=== PATIENT | female | born 1995 | race Hispanic/Latino ===

== ENCOUNTER 2018-10-29 03:26 | Emergency (ER) | payer OTHER, SELFPAY ==
[2018-10-29] MEDS ORDERED: Ondansetron PF 4 MG/2 ML Vial ONE (05:21)
[2018-10-29 05:54] LABS: Mean Corpuscular HGB CONC 35.7 g/dL (32.0-36.0); Mean Corpuscular Hemoglobin 32.7 pg (27.0-31.0); Mean Corpuscular Volume 91.7 fL (78.0-98.0); Mean Platelet Volume 10.8 fL (7.4-10.4); Platelet Count 165 thou/uL (130-400); RBC Distribution Width 11.7 % (11.5-14.5); Red Blood Cell (RBC) Count 4.29 mill/uL (4.20-5.40); White Blood Cell (WBC) Count 6.9 thou/uL (4.8-10.8)
[2018-10-29 05:55] LABS: Bilirubin Small (Negative); Blood, Urine Negative (Negative); Clarity CLEAR (Clear); Glucose, Urine (Dipstick) Negative (Negative); Leukocyte Negative (Negative); Nitrite Negative (Negative); Protein, Urine (Dipstick) Trace mg/dL (Neg-Trace); Urobilinogen 0.2 mg/dL (0.2-1.0)
[2018-10-29] MEDS ORDERED: Dicyclomine 20 MG TAB ONE (05:55)
[2018-10-29 06:01] LABS: ALT (SGPT) 13 U/L (8-55); AST (SGOT) 24 U/L (5-34); Albumin 4.2 g/dL (3.5-5.0); Alkaline Phosphatase 80 U/L (40-150); Anion Gap 16 mmol/L (10-20); BUN (Urea Nitrogen) 10 mg/dL (7.0-18.7); Bilirubin, Total 0.5 mg/dL (0.2-1.2); Calc. Creatinine Clearance 0 mL/min (70-130); Calcium 9.7 mg/dL (7.8-10.44); Carbon Dioxide 19 mmol/L (22-29); Chloride 103 mmol/L (98-107); Estimated GFR-MDRD Greater than 90; Globulin 3.4 g/dL (2.4-3.5); Glucose 81 mg/dL (70-105); Potassium 3.4 mmol/L (3.5-5.1); Protein, Total 7.6 g/dL (6.0-8.3); Sodium 135 mmol/L (136-145)
[2018-10-29 06:14] LABS: Band 12 % (5-11); Lymphocytes 4 % (21-51); MDiff Complete? YES; Monocytes 3 % (0-10); Neutrophil 81 % (42-75)
--- NOTE | 2018-10-29 07:15 | ULT ---
ULTRASOUND PELVIS WITH DOPPLER AND COLOR FLOW AND SPECTRAL ANALYSIS: Date: 10/29/18 INDICATION: patient with abdominal and pelvic cramping/pain. FINDINGS: There is a live intrauterine gestation present with cardiac activity documented at 153 beats/mi nute. On the basis of sonographic imaging, fetus demonstrates a 16 week and 4 day gestation, placing estimated date of delivery by ultrasound at 04/11/19. Estimated weight is 158 gm, which places the fetus at the 55th percentile by Hadlock criteria. Cervical length is approximately 3.2 cm, as dem onstrated, and the inferior placental margin does approximate the internal os, compatible with low-ly ing placenta. Amniotic fluid volume is subjectively normal. IMPRESSION: 1. Live, intrauterine gestation as above. 2. Low-lying placenta. Recommend continued imaging follow-up. CODE T. POS: NWK
== END 2018-10-29 06:43 | disposition home or self-care (01) ==
LOC: ERS 03:26
DX: O99.612 Diseases of the digestive system complicating pregnancy, second trimester (principal); K52.9 Noninfective gastroenteritis and colitis, unspecified; Z3A.16 16 weeks gestation of pregnancy
CPT/HCPCS: 76856; 80053; 81003; 84702; 85025; 87086; 93976; 96361; 96374; J2405

== ENCOUNTER 2019-03-26 17:00 | Inpatient (IN) | payer OTHER ==
--- NOTE | 2019-03-26 13:33 | PDOC.LDHP ---
Labor and Delivery H&P Chief complaint: scheduled induction HPI: 23 yo @ 37w3d by LMP c/w 13w6d sono who presents for IOL due to intahepatic cholestasis of based on sx and elevated LFTs. Pt has h/o LTCS x1 for FGR (never labored) and desires TOLAC. Antepartum course otherwise benign. Current gestational age (weeks): 37 Due date: 04/13/19 Dating criteria: last menstrual period Grav: 2 Para: 1 OB History Details: LTCS @ 36 weeks for FGR Current complications: other (ICP) Abnormal US findings: No Past Medical History: Denies Current medications: pre- vitamins, other (ASA) Previous surgical history: low tranverse CS Allergies/Adverse Reactions: Allergies Allergy/AdvReac Type Severity Reaction Status Date / Time No Known Allergies Allergy Unverified 03/26/19 19:36 Social history: none - Physical Exam Vital signs reviewed and normal: yes FHT: category 1 (120s, mod nerissa, +accels, no decels) [place] contractions every: no ctx - Vaginal Exam cm dilated: 1 (Balloon placed by Dr. Russo ) Effacement: 0% Station: -3 - OB Labs Blood type: O RH: positive Antibody Screen: negative HIV: negative RPR: negative HEPSAg: negative 1 hour GCT: negative GBS: negative Urine drug screen: negative Rubella: immune - Assessment 37w3d IUP H/O LTCS ICP IOL for TOLAC - Plan Plan: admit to L&D, cervical ripening (with cook balloon), labor augmentation if indicated, informed consent obtained, anesthesia consult for pain management -: Pt has been counseled on option of RCS vc TOLAC and desires TOLAC. Place balloon and plan for pitocin after balloon removed for IOL. Coags and ICP labs ordered.
[2019-03-26] MEDS ORDERED: HYDROcodone/Acetaminophen 5/325 mg Tablet PO PRN (19:02)
[2019-03-26] MEDS ORDERED: Misoprostol 200 MCG TAB PR PRN (19:02)
[2019-03-26] MEDS ORDERED: Lidocaine 1% (PF) 30 ML VIAL SC PRN (19:02)
[2019-03-26] MEDS ORDERED: Ibuprofen 800 MG TAB PO PRN (19:02)
[2019-03-26] MEDS ORDERED: Acetaminophen 500 MG TAB PO PRN (19:02)
[2019-03-26] MEDS ORDERED: NS / Oxytocin 40 units/1000ml 1,000 ML IV PRN (19:02)
[2019-03-26] MEDS ORDERED: Methylergonovine 0.2 MG/ML VIAL IM PRN (19:02)
[2019-03-26] MEDS ORDERED: Promethazine HCl 25 MG/ML VIAL IM PRN (19:02)
[2019-03-26] MEDS ORDERED: Diphenoxylate HCl/Atropine Tablet PO PRN (19:02)
[2019-03-26] MEDS ORDERED: Carboprost 250 MCG/ML AMP IM PRN (19:02)
[2019-03-26] MEDS ORDERED: Ondansetron PF 4 MG/2 ML Vial IVP PRN (19:02)
[2019-03-26] MEDS ORDERED: hydrALAZINE 20 MG/ML VIAL SLOW IVP PRN (19:02)
[2019-03-26] MEDS: Lactated Ringer's 1,000 ML IV SCH (19:30)
[2019-03-26 19:34] VITALS: BMI 33.9
[2019-03-26 19:58] LABS: Hemoglobin 12.7 g/dL (12.0-16.0); Mean Corpuscular HGB CONC 35.1 g/dL (32.0-36.0); Mean Corpuscular Hemoglobin 32.7 pg (27.0-31.0); Mean Corpuscular Volume 93.2 fL (78.0-98.0); Platelet Count 196 thou/uL (130-400); RBC Distribution Width 11.7 % (11.5-14.5); White Blood Cell (WBC) Count 8.4 thou/uL (4.8-10.8)
[2019-03-26 20:32] LABS: Syphilis Antibody Nonreactive (Nonreactive); Syphilis Antibody Index 0.05 S/CO (<1.00 Non-Reactive)
[2019-03-26 21:12] LABS: ALT (SGPT) 112 U/L (8-55); AST (SGOT) 124 U/L (5-34); Albumin 3.4 g/dL (3.5-5.0); Alkaline Phosphatase 340 U/L (40-110); Anion Gap 18 mmol/L (10-20); BUN (Urea Nitrogen) 11 mg/dL (7.0-18.7); Bilirubin, Total 0.5 mg/dL (0.2-1.2); Calc. Creatinine Clearance 172 mL/min (70-130); Calcium 9.2 mg/dL (7.8-10.44); Carbon Dioxide 18 mmol/L (22-29); Chloride 104 mmol/L (98-107); Estimated GFR-MDRD Greater than 90; Globulin 2.9 g/dL (2.4-3.5); Glucose 112 mg/dL (70-105); Protein, Total 6.3 g/dL (6.0-8.3); Sodium 136 mmol/L (136-145)
[2019-03-26 21:15] LABS: PTT 25.4 SEC (22.9-36.1); Prothrombin Time 12.9 SEC (12.0-14.7)
[2019-03-26 21:32] LABS: HBSAg Index 0.32 S/CO (0-0.99); HIV (1/2) Antibody/Antigen Non-Reactive (NonReactive); HIV 1/2 INDEX 0.09 S/CO (<1.00); Hep B Surf Ag Non-Reactive S/CO (NonReactive)
[2019-03-27] MEDS ORDERED: Zolpidem Tartrate 5 MG TAB PO PRN (00:04)
[2019-03-27] MEDS: Butorphanol Tartrate 1 MG/ML VIAL SLOW IVP PRN ×2 (01:29→02:59)
[2019-03-27] MEDS: Lactated Ringer's 1,000 ML IV SCH ×3 (02:59→14:03)
[2019-03-27] MEDS: NS w/ Oxytocin 10 units 500 ML IV SCH ×2 (06:35→21:09)
[2019-03-27] MEDS: Calcium Carbonate 500 MG ChewTAB PO PRN ×2 (07:42→23:28)
--- NOTE | 2019-03-27 08:13 | PDOC.LDPN ---
Labor & Delivery Progress Note - Subjective Subjective: other (mild ctx ) - Objective Vital signs reviewed and normal: yes General: NAD Uterine fundus: non tender Dilation: 4 Effacement: 50% Station: -2 FHT: category 1 (120s, mod nerissa, +accels, no decels ) [place] contractions every: q2-4min AROM: clear fluid - Assessment (1) 37 weeks gestation of Code(s): Z3A.37 - 37 WEEKS GESTATION OF Current Visit: Yes Status : Acute (2) Cholestasis during Code(s): O26.619 - LIVER AND BILIARY TRACT DISORD IN , UNSP TRIMESTER; K83.1 - OBSTRUCTION OF BILE DUCT Current Visit: Yes Status: Acute (3) Encounter for trial of labor Code(s): AIA6034 - Current Visit: Yes Status: Acute -: s/p AROM on pitocin Place IUPC next exam Continue mgmt TOLAC LFTs increased, PRN antihistamine
[2019-03-27] MEDS ORDERED: Fentanyl 4 mcg/Bup 0.1% Cadd 100 ML ONE ×2 (12:53→21:01)
[2019-03-27] MEDS ORDERED: Bupivacaine HCl 0.25%/Epi 0.0005/PF 10 ML VIAL FS ONE (19:00)
[2019-03-27] MEDS ORDERED: Bupivacaine/Epinephrine 0.5% 10 ML VIAL ONE ×2 (19:00)
--- NOTE | 2019-03-27 23:02 | PDOC.LDPN ---
Labor & Delivery Progress Note - Subjective Subjective: comfortable - Objective Vital signs reviewed and normal: yes General: NAD Uterine fundus: non tender Dilation: 7 Effacement: 90% Station: -1 FHT: category 1 (130s, mod nerissa, +accels, early decels ) [place] contractions every: q2 min - adequate MVUs - Assessment (1) 37 weeks gestation of Code(s): Z3A.37 - 37 WEEKS GESTATION OF Current Visit: Yes Status : Acute (2) Cholestasis during Code(s): O26.619 - LIVER AND BILIARY TRACT DISORD IN , UNSP TRIMESTER; K83.1 - OBSTRUCTION OF BILE DUCT Current Visit: Yes Status: Acute (3) Encounter for trial of labor Code(s): [id number] - Current Visit: Yes Status: Acute -: SVE 7 cm, unchanged for several hours. Recommended RLTCS for arrest of dilation, Pt amenable.
[2019-03-27] MEDS ORDERED: Bicitra 30 ML UDCUP PO SCH (23:15)
[2019-03-27] MEDS ORDERED: Azithromycin 500 MG in Sodium Chloride 0.9% 250 ML 250 ML IVPB SCH (23:15)
[2019-03-27] MEDS ORDERED: CEFAZOLIN 2 GM in Premix Bag 1 BAG IVPB SCH (23:15)
[2019-03-27] MEDS ORDERED: MORPHINE 5 MG/10 ML PF VIAL ONE (23:18)
[2019-03-27] MEDS ORDERED: Dexamethasone 4 mg/ml Vial ONE (23:19)
[2019-03-27] MEDS ORDERED: Oxytocin 10 UNITS/ML VIAL ONE (23:19)
[2019-03-27] MEDS ORDERED: Ondansetron PF 4 MG/2 ML Vial ONE (23:19)
[2019-03-27] MEDS ORDERED: ePHEDrine/0.9% NaCl/PF SYRINGE 50 mg/10 ml ONE (23:19)
[2019-03-27] MEDS ORDERED: PHENYLEPHRINE-NS 100 MCG/ML 10 ML SYRINGE ONE (23:19)
[2019-03-27] MEDS ORDERED: Ketorolac Tromethamine 30 MG/ML VIAL ONE (23:19)
[2019-03-27] MEDS ORDERED: Fentanyl 100 MCG/2 ML VIAL ONE (23:20)
[2019-03-27] MEDS ORDERED: Carboprost 250 MCG/ML AMP ONE (23:55)
[2019-03-27] MEDS ORDERED: Methylergonovine 0.2 MG/ML VIAL ONE (23:56)
[2019-03-27] MEDS ORDERED: Misoprostol 200 MCG TAB ONE (23:56)
--- NOTE | 2019-03-28 00:17 | PDOC.EVN ---
Event Note - Event Note Event Note: CS Assist Note Asked to assist with this repeat CS. I was scrubbed and assisted and participated until fascial closure. Vigorous . No complications noted. Please see full dictation by Dr Uribe.
[2019-03-28] MEDS ORDERED: diphenhydrAMINE 50 MG/ML VIAL ONE (00:20)
--- NOTE | 2019-03-28 00:31 | PDOC.OPDEL ---
OB Operative/Delivery Note Delivery Dr/Surgeon: Lynn Nelson DO Assist: Tnoy Burnham MD Pre-Delivery Diagnosis: medically indicated induction Procedure/Post Delivery Dx: repeat low transverse CS Weeks gestation: 37 Anesthesia: epidural - Findings A Sex: male - 1 min: 8 - 5 min: 9 - Additional Findings/Plan findings: low transverse hysterotomy without extension, normal uterus, normal tubes, normal ovaries, other (Infant in ROT position Clear amniotic fluid Normal appearing placenta) Estimated blood loss: EBL 500 cc; QBL 465 cc Post delivery plan: routine recovery (Dictation # [id number])
[2019-03-28] MEDS ORDERED: Lanolin Ointment 7 GM TUBE TOP PRN (02:34)
[2019-03-28] MEDS ORDERED: Ondansetron PF 4 MG/2 ML Vial IVP PRN ×2 (02:34→03:31)
[2019-03-28] MEDS ORDERED: hydrALAZINE 20 MG/ML VIAL SLOW IVP PRN (02:34)
[2019-03-28] MEDS ORDERED: Acetaminophen 325 MG TAB PO PRN (02:34)
[2019-03-28] MEDS ORDERED: Bisacodyl 10 MG SUPP PR PRN (02:34)
[2019-03-28] MEDS ORDERED: Misoprostol 200 MCG TAB PR PRN (02:34)
[2019-03-28] MEDS ORDERED: HYDROcodone/Acetaminophen 5/325 mg Tablet PO PRN ×2 (02:34)
[2019-03-28] MEDS ORDERED: Methylergonovine 0.2 MG/ML VIAL IM PRN (02:34)
[2019-03-28] MEDS ORDERED: L&D-Morphine 4 MG/ML VIAL SLOW IVP PRN (03:31)
[2019-03-28] MEDS ORDERED: Ketorolac Tromethamine 30 MG/ML VIAL IVP PRN (03:31)
[2019-03-28] MEDS ORDERED: Ondansetron HCl/PF 4 MG/2 ML Vial IVP PRN (03:31)
[2019-03-28] MEDS ORDERED: Promethazine HCl 25 MG SUPP PR PRN (03:31)
[2019-03-28] MEDS ORDERED: HYDROmorphone 2 MG/ML VIAL SLOW IVP PRN (03:31)
[2019-03-28] MEDS ORDERED: diphenhydrAMINE 50 MG/ML VIAL IVP PRN (03:31)
[2019-03-28] MEDS ORDERED: Promethazine HCl 25 MG/ML VIAL IM PRN (03:31)
[2019-03-28] MEDS ORDERED: Meperidine HCl/PF 25 MG/ML VIAL SLOW IVP PRN (03:31)
[2019-03-28] MEDS ORDERED: Naloxone HCl 0.4 mg/ml Vial IVP PRN ×2 (03:31)
[2019-03-28] MEDS: Lactated Ringer's 1,000 ML IV SCH ×3 (03:42→20:40)
[2019-03-28] MEDS: Ibuprofen 800 MG TAB PO SCH ×3 (03:42→21:45)
[2019-03-28] MEDS ORDERED: Ketorolac Tromethamine 30 MG/ML VIAL IVP SCH (03:45)
[2019-03-28] MEDS ORDERED: Communication Order-Pharmacy FS SCH (03:45)
[2019-03-28] MEDS: Ferrous Sulfate 325 MG TAB PO SCH ×2 (08:19→20:40)
[2019-03-28] MEDS: Docusate Calcium (SURFAK) 240 MG CAP PO SCH ×2 (08:20→21:45)
[2019-03-28] MEDS: Prenatal Vitamin 1 TAB PO SCH (08:20)
--- NOTE | 2019-03-28 09:22 | OP ---
DATE OF PROCEDURE: 03/27/2019 PREOPERATIVE DIAGNOSES: 1. A 37-week 4-day intrauterine . 2. Failed trial of labor after delivery due to arrest of dilation. 3. Intrahepatic cholestasis of . 4. History of a low-transverse delivery x1. POSTOPERATIVE DIAGNOSES: 1. A 37-week 4-day intrauterine . 2. Failed trial of labor after delivery due to arrest of dilation. 3. Intrahepatic cholestasis of . 4. History of a low-transverse delivery x1. PROCEDURE PERFORMED: Repeat low transverse delivery via Pfannenstiel skin incision. WEAVING MACHINE OPERATOR: Tony Cedeno MD COMPLICATIONS: None. ANESTHESIA: Epidural, which was additionally dose with Duramorph. ESTIMATED BLOOD LOSS: 500 mL. QUANTITATIVE BLOOD LOSS: 465 Ml IV FLUIDS: Approximately 200 to 300 mL. URINARY OUTPUT: 200 mL. FINDINGS: Thin lower uterine segment. Clear amniotic fluid. in right occiput transverse position with Apgars 9 and 9. Normal-appearing placenta. Normal-appearing uterus, fallopian tubes, and ovaries bilaterally. INDICATIONS FOR THE PROCEDURE: Ms. Estrella Frances is a 23-year-old, G2, P1 , who was admitted for an induction for trial of labor at 37 and 3 weeks secondary to intrahepatic cholestasis of . The patient underwent cervical ripening with a Cook balloon followed by augmentation with Pitocin. She has had adequate MVUs for several hours with arrest of dilation at 7 cm. Due to the arrest of dilation, a repeat delivery was recommended. The patient was amenable. DESCRIPTION OF PROCEDURE: The patient was brought to the operating room. The patient was placed in supine position with a leftward tilt. She was prepped and draped in a sterile fashion. She was given Ancef and azithromycin for surgical prophylaxis. An official time-out was performed. A Pfannenstiel skin incision was made through the previous scar. This was carried down to the underlying fascial layer. The fascia was incised in the midline using the scalpel and extended bilaterally using Clemens scissors. The superior aspect of the fascial incision was grasped using Handy clamps, tented up, and dissected free from the underlying rectus abdominis muscles and the same was performed to the inferior aspect of the fascial incision. The peritoneum was then elevated using hemostats and this was incised using Metzenbaum scissors. This was extended using blunt dissection. The Jamal O retractor was then placed into the abdomen. The adhesions from the dome of the bladder were transected to allow for bladder flap to be created. A low-transverse hysterotomy was made using the scalpel through the previous uterine scar. This was extended using blunt dissection. The amniotic membranes were ruptured, noting clear amniotic fluid. The infant was delivered in cephalic presentation in the right occiput transverse position. The infant's cord was clamped and cut. The was handed to the waiting neonatology team. Cord blood was obtained. Placenta was delivered spontaneously intact. The uterus was cleared of all clot and debris. Hysterotomy was closed in a running locking fashion using 1 Monocryl, creating hemostasis. The pelvis was irrigated and cleared of all clot and debris. The adnexa were evaluated and normal in appearance. The Jamal O retractor was removed. The peritoneum was closed in a running fashion using 3-0 chromic. The rectus abdominis muscles were evaluated and hemostatic with use of the Bovie. The fascia was closed in a running fashion using 0 PDS and the subcutaneous layer was copiously irrigated and hemostatic with use of the Bovie. The subcutaneous layer was closed using 3-0 Vicryl and the skin was closed using 4-0 Monocryl and Dermabond. The patient tolerated the procedure well. There were no complications. All counts were correct x3. Job ID: [id number] [facility]
[2019-03-28] MEDS: HYDROcodone/Acetaminophen 5/325 mg Tablet PO PRN ×3 (11:49→21:46)
--- NOTE | 2019-03-28 13:05 | PDOC.PP ---
Post Progress Note Post Day #: 1 Subjective: Pt doing well on PPD1. She just got her hayes out and is about to try to ambulate, shower and urinate. She has minimal pain at this time. Baby is breast feeding with good latch. No problems with incision. She ate breakfast without any pain or nausea. No chest pain or shortness of breath. PO intake tolerated: yes Flatus: yes Vital Signs (12 hours) Temp Pulse Resp BP BP Pulse Ox 03/28/19 11:16 98.2 F 87 20 94/50 L 03/28/19 07:15 99.3 F 78 18 99/59 L 97 03/28/19 05:15 99.5 F 73 16 105/57 L 03/28/19 03:50 99.5 F 92 16 113/66 03/28/19 02:50 99.8 F H 79 16 110/61 95 Weight Weight 210 lb - Physical Examination General: NAD Respiratory: non-labored breathing Abdominal: + bowel sounds, lochia, no distention, appropriately TTP Extremities: negative homans (B) Skin: CS incision dry & intact, no rash Neurological: no gross focal deficits Psychiatric: A&Ox3, normal affect Result Diagrams: 03/26/19 19:31 03/26/19 19:31 Additional Labs: Post Labs Blood Type O POSITIVE 03/26/19 23:39 Hep Bs Antigen Non-Reactive S/CO (NonReactive) 03/26/19 19:31 (1) delivery delivered Code(s): O82 - ENCOUNTER FOR DELIVERY WITHOUT INDICATION Status: Acute (2) Cholestasis during Code(s): O26.619 - LIVER AND BILIARY TRACT DISORD IN , UNSP TRIMESTER; K83.1 - OBSTRUCTION OF BILE DUCT Status: Acute - Assessment/Plan Pt doing well. She just got hayes out and is about to ambulate and try to void. Pain is well controlled with minimal lochia. Pt is breast feeding with good latch. She is eating well. NO RUQ pain. Incision intact and dry. We will continue routine postpatum care.
[2019-03-28] MEDS ORDERED: Butorphanol Tartrate 1 MG/ML VIAL SLOW IVP PRN (15:45)
[2019-03-28] MEDS ORDERED: Sodium Chloride 0.9% 10 ML ONE (17:43)
[2019-03-28] MEDS: Naloxone HCl 0.4 mg/ml Vial IV PRN ×3 (17:45→18:16)
[2019-03-28] MEDS: Simethicone Chewable 80 MG TAB PO PRN (21:44)
[2019-03-29] MEDS: HYDROcodone/Acetaminophen 5/325 mg Tablet PO PRN ×4 (03:22→20:15)
[2019-03-29] MEDS: NS w/ Oxytocin 10 units 500 ML IV SCH (05:34)
[2019-03-29] MEDS: Ibuprofen 800 MG TAB PO SCH ×4 (05:36→23:25)
[2019-03-29 07:07] LABS: Hemoglobin 11.4 g/dL (12.0-16.0); Mean Corpuscular HGB CONC 33.5 g/dL (32.0-36.0); Mean Corpuscular Hemoglobin 31.8 pg (27.0-31.0); Mean Corpuscular Volume 95.1 fL (78.0-98.0); Mean Platelet Volume 10.6 fL (7.4-10.4); Platelet Count 170 thou/uL (130-400); RBC Distribution Width 11.7 % (11.5-14.5); Red Blood Cell (RBC) Count 3.58 mill/uL (4.20-5.40); White Blood Cell (WBC) Count 10.6 thou/uL (4.8-10.8)
[2019-03-29] MEDS: Ferrous Sulfate 325 MG TAB PO SCH (07:15)
--- NOTE | 2019-03-29 07:56 | PDOC.PP ---
Post Progress Note Post Day #: 2 Subjective: No concerns. Pain controlled. Minimal-moderate lochia. Not passing flatus. Voiding. PO intake tolerated: yes Flatus: no Ambulation: yes Vital Signs (12 hours) Temp Pulse Resp BP 03/29/19 03:20 97.9 F 88 16 104/57 L 03/28/19 23:40 98.6 F 88 16 98/56 L Weight Weight 210 lb - Physical Examination General: NAD Cardiovascular: RRR Respiratory: non-labored breathing Abdominal: no distention, appropriately TTP Fundus firm & at: below umbilicus Extremities: negative homans (B) Skin: CS incision dry & intact, no rash Neurological: no gross focal deficits Psychiatric: A&Ox3, normal affect Result Diagrams: 03/29/19 06:25 03/26/19 19:31 Additional Labs: Post Labs Blood Type O POSITIVE 03/26/19 23:39 Hep Bs Antigen Non-Reactive S/CO (NonReactive) 03/26/19 19:31 (1) 37 weeks gestation of Code(s): Z3A.37 - 37 WEEKS GESTATION OF Status: Resolved (2) Cholestasis during Code(s): O26.619 - LIVER AND BILIARY TRACT DISORD IN , UNSP TRIMESTER; K83.1 - OBSTRUCTION OF BILE DUCT Status: Resolved (3) Encounter for trial of labor Code(s): [id number] - Status: Resolved (4) S/P repeat low transverse Code(s): Z98.891 - HISTORY OF UTERINE SCAR FROM PREVIOUS SURGERY Status: Acute - Assessment/Plan PPD2 VSSAF Continue PP care. plan for d/c tomorrow due to late delivery, however, may d/c this PM if desires after passes flatus.
[2019-03-29] MEDS: Docusate Calcium (SURFAK) 240 MG CAP PO SCH ×2 (08:08→20:15)
[2019-03-29] MEDS: Prenatal Vitamin 1 TAB PO SCH (08:09)
[2019-03-29] MEDS ORDERED: Milk Of Magnesia 30 ML UDCUP PO SCH (09:00)
[2019-03-29] MEDS: Lactated Ringer's 1,000 ML IV SCH (10:05)
[2019-03-30] MEDS: HYDROcodone/Acetaminophen 5/325 mg Tablet PO PRN ×6 (00:11→22:47)
[2019-03-30] MEDS: Lactated Ringer's 1,000 ML IV SCH ×4 (01:39→19:26)
[2019-03-30] MEDS: Ferrous Sulfate 325 MG TAB PO SCH ×3 (02:13→21:52)
[2019-03-30] MEDS: Ibuprofen 800 MG TAB PO SCH ×3 (06:08→22:47)
[2019-03-30] MEDS: NS w/ Oxytocin 10 units 500 ML IV SCH (07:37)
--- NOTE | 2019-03-30 08:20 | PDOC.PP ---
Post Progress Note Post Day #: 3 Subjective: No concerns. Minimal pain and lochia. Breast feeding. Pt went to NICU yesterday for hypoglycemia. PO intake tolerated: yes Flatus: yes Ambulation: yes Vital Signs (12 hours) Temp Pulse Resp BP Pulse Ox 03/30/19 04:15 98.2 F 82 16 99/57 L 95 03/30/19 00:00 97.9 F 84 20 110/67 97 Weight Weight 210 lb - Physical Examination General: NAD Cardiovascular: RRR Respiratory: non-labored breathing Abdominal: no distention, appropriately TTP Deviation from normal: below umbilicus Extremities: negative homans (B) Skin: CS incision dry & intact, no rash Neurological: no gross focal deficits Psychiatric: A&Ox3, normal affect Result Diagrams: 03/29/19 06:25 03/26/19 19:31 Additional Labs: Post Labs Blood Type O POSITIVE 03/26/19 23:39 Hep Bs Antigen Non-Reactive S/CO (NonReactive) 03/26/19 19:31 (1) 37 weeks gestation of Code(s): Z3A.37 - 37 WEEKS GESTATION OF Status: Resolved (2) Cholestasis during Code(s): O26.619 - LIVER AND BILIARY TRACT DISORD IN , UNSP TRIMESTER; K83.1 - OBSTRUCTION OF BILE DUCT Status: Resolved (3) Encounter for trial of labor Code(s): [id number] - Status: Resolved (4) S/P repeat low transverse Code(s): Z98.891 - HISTORY OF UTERINE SCAR FROM PREVIOUS SURGERY Status: Acute - Assessment/Plan PPD3 VSSAF Plan for possible d/c this PM if infant stable for d/c later today, if not will hold d/c until tomorrow.
[2019-03-30] MEDS: Prenatal Vitamin 1 TAB PO SCH (09:57)
[2019-03-30] MEDS: Docusate Calcium (SURFAK) 240 MG CAP PO SCH ×2 (09:58→22:47)
[2019-03-30] MEDS: Simethicone Chewable 80 MG TAB PO PRN (09:58)
[2019-03-31] MEDS: Lactated Ringer's 1,000 ML IV SCH ×2 (02:30→07:53)
[2019-03-31] MEDS: HYDROcodone/Acetaminophen 5/325 mg Tablet PO PRN ×3 (04:06→12:56)
[2019-03-31] MEDS: Ibuprofen 800 MG TAB PO SCH (06:05)
[2019-03-31] MEDS: NS w/ Oxytocin 10 units 500 ML IV SCH (06:24)
--- NOTE | 2019-03-31 07:37 | PDOC.PP ---
Post Progress Note Post Day #: 4 Subjective: No concerns. Minimal pain and lochia. Infant out of NICU. Voiding. PO intake tolerated: yes Flatus: yes Ambulation: yes Vital Signs (12 hours) Temp Pulse Resp BP Pulse Ox 03/31/19 04:00 98.3 F 89 16 113/68 96 03/31/19 00:00 98.2 F 83 16 134/60 97 03/30/19 19:55 98.8 F 90 16 126/59 L 96 Weight Weight 210 lb - Physical Examination General: NAD Cardiovascular: RRR Respiratory: non-labored breathing Abdominal: no distention, appropriately TTP Fundus firm & at: below umbilicus Extremities: negative homans (B) Skin: CS incision dry & intact, no rash Neurological: no gross focal deficits Psychiatric: A&Ox3, normal affect Result Diagrams: 03/29/19 06:25 03/26/19 19:31 Additional Labs: Post Labs Blood Type O POSITIVE 03/26/19 23:39 Hep Bs Antigen Non-Reactive S/CO (NonReactive) 03/26/19 19:31 (1) 37 weeks gestation of Code(s): Z3A.37 - 37 WEEKS GESTATION OF Status: Resolved (2) Cholestasis during Code(s): O26.619 - LIVER AND BILIARY TRACT DISORD IN , UNSP TRIMESTER; K83.1 - OBSTRUCTION OF BILE DUCT Status: Resolved (3) Encounter for trial of labor Code(s): [id number] - Status: Resolved (4) S/P repeat low transverse Code(s): Z98.891 - HISTORY OF UTERINE SCAR FROM PREVIOUS SURGERY Status: Acute - Assessment/Plan PPD4 VSSAF Plan for d/c home today with infant.
[2019-03-31] MEDS: Ferrous Sulfate 325 MG TAB PO SCH (07:53)
[2019-03-31] MEDS: Prenatal Vitamin 1 TAB PO SCH (08:03)
[2019-03-31] MEDS: Docusate Calcium (SURFAK) 240 MG CAP PO SCH (08:03)
[2019-03-31 09:56] VITALS: BP 105/57; TEMP 97.9
== END 2019-03-31 13:25 | disposition home or self-care (01) | DRG 786 ==
LOC: L&D 18:38 → 3SW 03-28 02:50
PROVIDERS: ADMIT Obstetrics & Gynecology; ATTEND Obstetrics & Gynecology
PROC: 10907ZC Drainage of Amniotic Fluid, Therapeutic from Products of Conception, Via Natural or Artificial Opening (ICD-10-PCS; 2019-03-26)
PROC: 3E033VJ Introduction of Other Hormone into Peripheral Vein, Percutaneous Approach (ICD-10-PCS; 2019-03-26)
PROC: 3E033VJ Introduction of Other Hormone into Peripheral Vein, Percutaneous Approach (ICD-10-PCS; 2019-03-26)
PROC: 10D00Z1 Extraction of Products of Conception, Low, Open Approach (ICD-10-PCS; principal; 2019-03-27)
DX: O26.62 Liver and biliary tract disorders in childbirth (principal); K83.1 Obstruction of bile duct; Z3A.37 37 weeks gestation of pregnancy; Z37.0 Single live birth; O34.211 Maternal care for low transverse scar from previous cesarean delivery; O61.0 Failed medical induction of labor; O62.0 Primary inadequate contractions
CPT/HCPCS: 36415; 51702; 80053; 85027; 85610; 85730; 86780; 86850; 86900; 86901; 87340; 87389; C1726; J0456; J0595; J0690; J1100; J1200; J1885; J2210; J2274; J2310; J2405; J2590; J3010; J3490; J7050

== ENCOUNTER 2023-01-29 08:22 | Emergency (ER) | payer OTHER ==
[2023-01-29 08:57] LABS: BHCG - Serum Negative (NEGATIVE); Pregs Control Background? CLEAR/WHITE (CLR/WHITE); Pregs Control Bar Appear? YES (CONTROL BAR)
[2023-01-29 09:04] LABS: Bacteria/HPF 1+ HPF (None Seen); Bilirubin Negative (Negative); Blood, Urine Negative (Negative); CAUTI Indications for Culture Dysuria,urgency,freq; Clarity Clear (Clear); Glucose, Urine (Dipstick) Normal (Negative); Ketone, Urine Negative (Negative); Leukocyte Negative Leu/uL (Negative); Nitrite Negative (Negative); Protein, Urine (Dipstick) Negative (Neg-Trace); RBC/HPF 0-3 HPF (0-3); Specific Gravity, Urine 1.009 (1.002-1.036); Squamous Epithelial 0-3 HPF (0-3); Urobilinogen Normal mg/dL (Less than 2); WBC/HPF 0-3 HPF (0-3)
[2023-01-29 09:05] LABS: Urine Culture Reflex No No
[2023-01-29] MEDS ORDERED: Acetaminophen 500 MG TAB ONE (09:18)
[2023-01-29] MEDS ORDERED: Ibuprofen 200 MG TAB ONE (09:18)
== END 2023-01-29 09:22 | disposition home or self-care (01) ==
LOC: ERS 08:22
DX: R10.2 Pelvic and perineal pain (principal)
CPT/HCPCS: 36415; 81001; 84703; 99284

== ENCOUNTER 2025-04-12 09:42 | Emergency (ER) | payer SELFPAY ==
[2025-04-12 10:44] LABS: Bacteria/HPF 3+ HPF (None Seen); CAUTI Indications for Culture Pelvic or flank pain; Glucose, Urine (Dipstick) Normal (Negative); Leukocyte 75 Leu/uL (Negative); Protein, Urine (Dipstick) Negative (Neg-Trace); RBC/HPF 0-3 HPF (0-3); Specific Gravity, Urine 1.006 (1.002-1.036)
[2025-04-12 10:54] LABS: Sperm/HPF 1+ HPF (None Seen)
[2025-04-12 10:56] LABS: Urine Culture Reflex Yes Yes
[2025-04-12 11:00] LABS: ALT (SGPT) 13 U/L (Less than 34); AST (SGOT) 26 U/L (11-34); Albumin 3.9 g/dL (3.1-4.5); Alkaline Phosphatase 55 U/L (40-110); Anion Gap 13 mmol/L (10-20); BUN (Urea Nitrogen) 11 mg/dL (7.0-18.7); Bilirubin, Total 0.3 mg/dL (0.3-1.2); Calc. Creatinine Clearance 0 mL/min (70-130); Calcium 9.5 mg/dL (7.8-10.44); Carbon Dioxide 21 mmol/L (22-29); Chloride 107 mmol/L (98-107); Globulin 3.3 g/dL (2.4-3.5); Glucose 62 mg/dL (70-105); Lipase 24 U/L (8-78); Potassium 3.6 mmol/L (3.5-5.1); Sodium 137 mmol/L (136-145)
[2025-04-12 11:02] LABS: #Basophils 0.04 10x3/uL (0.0-0.2); #Eosinophils 0.09 10x3/uL (0.0-0.7); #Monocytes 0.61 10x3/uL (0.11-0.59); #Neutrophils 4.72 10x3/uL (1.40-6.50); %Basophils 0.5 % (0.0-1.0); %Eosinophils 1.2 % (0.0-10.0); %Lymphocytes 26.3 % (21.0-51.0); %Monocytes 8.2 % (0.0-10.0); %Neutrophils 63.7 % (42.0-75.0); Hematocrit 38.5 % (36.0-47.0); Hemoglobin 13.3 g/dL (12.0-16.0); Mean Corpuscular Hemoglobin 31.4 pg (27.0-31.0); Mean Corpuscular Volume 90.8 fL (78.0-98.0); Platelet Count 199 10x3/uL (130-400); Red Blood Cell (RBC) Count 4.24 mill/uL (4.20-5.40); White Blood Cell (WBC) Count 7.42 10x3/uL (4.8-10.8)
[2025-04-12] MEDS ORDERED: Cephalexin 250 MG CAP ONE (11:42)
== END 2025-04-12 11:49 | disposition home or self-care (01) ==
LOC: ERS 09:42
DX: O23.91 Unspecified genitourinary tract infection in pregnancy, first trimester (principal); R82.71 Bacteriuria; O99.891 Other specified diseases and conditions complicating pregnancy; R10.20 Pelvic and perineal pain unspecified side; Z3A.13 13 weeks gestation of pregnancy; V89.2XXA Person injured in unspecified motor-vehicle accident, traffic, initial encounter
CPT/HCPCS: 76815; 80053; 81001; 83690; 85025; 87086